=== PATIENT | male | born 1990 | race Caucasian/White ===

== ENCOUNTER 2017-01-30 20:49 | Emergency (ER) | payer SELFPAY ==
[~2017-01-30] VITALS: Ht 185.4 cm; Wt 88.4 kg
[2017-01-30 21:17] VITALS: BP 181/70
[2017-02-02] MEDS ORDERED: SUBOXONE 8 MG-1 EAC2 SL (06:58)
[2017-02-02] MEDS ORDERED: CIPRO500 MG PO (07:51)
[2017-02-03] MEDS ORDERED: CIPROFLOXACIN500 M1 PO (10:04)
== END 2017-01-30 23:05 | disposition left against medical advice (07) ==
LOC: EME 20:49
DX: F19.10 Other psychoactive substance abuse, uncomplicated (principal); F17.200 Nicotine dependence, unspecified, uncomplicated; Z88.8 Allergy status to other drugs, medicaments and biological substances
CPT/HCPCS: 80053; 81003; 82550; 83690; 85025; 93005; 99281; 99283

== ENCOUNTER 2017-07-15 20:51 | Emergency (ER) | payer OTHER ==
[~2017-07-15] VITALS: Ht 185.4 cm; Wt 101.8 kg
[~2017-07-15 20:51] MED LIST: CIPRO500 MG PO; CIPROFLOXACIN500 M1 PO; SUBOXONE 8 MG-1 EAC2 SL
[2017-07-15 21:15] LABS: APPEARANCE SL.HAZY ((CLEAR)); BILIRUBIN NEGATIVE; BLOOD NEGATIVE; COLOR YELLOW ((YELLOW)); GLUCOSE (STRIP) NEGATIVE; KETONES NEGATIVE; LEUKOCYTES TRACE; NITRITE NEGATIVE; PROTEIN (STRIP) NEGATIVE; SPECIFIC GRAVITY 1.021 (1.000-1.030)
[2017-07-15 21:20] LABS: BACTERIA NONE SEEN /HPF; EPITHELIAL CELLS RARE /HPF; MUCUS TRACE /LPF; RED BLOOD CELLS 0-5 /HPF (0-5); UCUL ADDED? NO; WHITE BLOOD CELLS 0-5 /HPF (0-5)
[2017-07-15] MEDS ORDERED: BACTRIM,SEPT1 TABLET PO (22:56)
[2017-07-15 23:10] VITALS: BP 153/86
== END 2017-07-15 23:11 | disposition home or self-care (01) ==
LOC: EME 20:51
DX: L02.214 Cutaneous abscess of groin (principal); F17.200 Nicotine dependence, unspecified, uncomplicated
CPT/HCPCS: 81003; 99281; 99284